=== PATIENT | female | born 1985 | race Caucasian/White ===

== ENCOUNTER 2019-03-09 10:13 | Emergency (ER) | payer SELFPAY ==
--- NOTE | 2019-03-09 10:52 | RAD ---
Left ring finger 3 views HISTORY: Needle injury. FINDINGS: Embedded within the volar soft tissues of the distal tuft of the ring finger is a transvers alina oriented sharp metallic tip of a needle that is 4 mm length by less than 1 mm with. It lies immediately volar to the cortex of the distal tuft. No acute osseous abnormalities are apparent.
[2019-03-09] MEDS ORDERED: Lidocaine 1% (PF) 30 ML VIAL ONE (11:06)
[2019-03-09] MEDS ORDERED: Bupivacaine 0.5% 10 ML VIAL ONE (11:06)
[2019-03-09] MEDS ORDERED: Bacitracin 1 PK ONE (13:10)
== END 2019-03-09 13:11 | disposition home or self-care (01) ==
LOC: ERS 10:13
DX: S61.235A Puncture wound without foreign body of left ring finger without damage to nail, initial encounter (principal); W26.8XXA Contact with other sharp object(s), not elsewhere classified, initial encounter
CPT/HCPCS: 10120; J2001; J3490

== ENCOUNTER 2022-04-20 12:43 | Outpatient (CLI) | payer BC | END 2022-04-20 12:44 | disposition home or self-care (01) | LOC: BICULT 12:43 | PROVIDERS: ATTEND Family Medicine | DX: N63.0 Unspecified lump in unspecified breast (principal); N64.59 Other signs and symptoms in breast ==

== ENCOUNTER 2023-12-20 08:58 | Outpatient (CLI) | payer BC ==
[2023-12-20] MEDS ORDERED: Iopamidol 370 76% 100 ML VIAL ONE (10:52)
[2023-12-20] MEDS ORDERED: GASTROGRAFIN 30 ML BOT ONE (10:52)
== END 2023-12-20 08:59 | disposition home or self-care (01) ==
LOC: CT 08:58
PROVIDERS: ATTEND Physician Assistant Medical
DX: K92.1 Melena (principal); R10.32 Left lower quadrant pain; R19.8 Other specified symptoms and signs involving the digestive system and abdomen
CPT/HCPCS: 74177; Q9963; Q9967